=== PATIENT | male | born 1960 | race Caucasian/White ===

== ENCOUNTER 2018-11-17 09:47 | Emergency (ER) | payer BC ==
[~2018-11-17] VITALS: Ht 180.3 cm; Wt 108.1 kg
[~2018-11-17 09:47] MED LIST: ALLO100T PO; BUPR75TA11 PO; CLOP75TA35 PO; GLIM4TAB79 PO; HYDR25TA4 PO; METF-950 PO; METO50TA16 PO; SIMV40TA4 PO
[2018-11-17 11:06] VITALS: BP 101/72
== END 2018-11-17 11:42 | disposition home or self-care (01) ==
LOC: ER 09:50
DX: K06.8 Other specified disorders of gingiva and edentulous alveolar ridge (principal); I25.10 Atherosclerotic heart disease of native coronary artery without angina pectoris; I25.2 Old myocardial infarction; M10.9 Gout, unspecified; Z88.8 Allergy status to other drugs, medicaments and biological substances; Z79.899 Other long term (current) drug therapy
CPT/HCPCS: 99281